=== PATIENT | female | born 1935 | race Hispanic/Latino ===

== ENCOUNTER 2018-11-01 13:20 | Emergency (ER) | payer MEDICARE, OTHER ==
--- NOTE | 2018-11-01 13:54 | Event Note ---
ED Screening Note Date of service: 11/01/18 Time: 13:50 ED Screening Note: 83 y o female presents to Ed cc of burning to pelvic area with nausea and constipation recent back fracture: on oxy,tramadol, gabapentin among other meds This initial assessment/diagnostic orders/clinical plan/treatment(s) is/are subject to change based on patients health status, clinical progression and re- assessment by fellow clinical providers in the ED. Further treatment and workup at subsequent clinical providers discretion. Patient/guardian urged not to elope from the ED as their condition may be serious if not clinically assessed and managed. Initial orders include: ua, CT abdomen
[2018-11-01 15:50] LABS: Bacteria,Urine 1+ /HPF (Negative); Bilirubin,Urine NEG (Negative); Blood,Urine NEG (Negative); Color,Urine Amber (Yellow); Mucus,Urine 3+ /HPF; Protein,Urine <15 mg/dL mg/dL (Negative)
--- NOTE | 2018-11-01 17:03 | Cat Scan Report ---
CT ABDOMEN AND PELVIS WITHOUT CONTRAST INDICATION: Abdominal Pain. COMPARISON: No relevant prior imaging study available. TECHNIQUE: Axial, coronal and sagittal CT imaging of the abdomen and pelvis was performed without co ntrast. Lack of intravenous contrast limits evaluation of the vascular and solid organs. All CT sca ns at this location are performed using CT dose reduction for ALARA by means of automated exposure co ntrol. FINDINGS: Motion artifact limits this exam. LOWER CHEST: Bibasilar atelectasis is noted with mild to moderate cardiomegaly. No additional signifi cant abnormality. Pacing leads are partially visualized. LIVER: No significant abnormality. BILIARY: No significant abnormality. PANCREAS: No significant abnormality. SPLEEN: No significant abnormality. ADRENALS: No significant abnormality. KIDNEYS AND URETERS: No significant abnormality. GI TRACT: There is extensive diverticulosis of the sigmoid colon with additional diverticula seen els ewhere along the colon without evidence of diverticulitis. No significant abnormality of the stomach or small bowel is seen. The appendix is not seen. PERITONEUM: No free fluid. No free air. No fluid collection. LYMPH NODES: No significant adenopathy. VASCULATURE: The aorta is normal in caliber with mild generalized atherosclerosis. URINARY BLADDER: No significant abnormality. REPRODUCTIVE ORGANS: Prior hysterectomy. No significant abnormality. ADDITIONAL FINDINGS: None. SKELETAL SYSTEM: There is osteopenia/osteoporosis with degenerative changes throughout the spine. IMPRESSION: 1. No acute abnormality of the abdomen or pelvis. 2. Additional findings as above. Signer Name: Alvino Castillo MD Signed: 11/01/2018 4:59 PM Workstation Name: [id number]
[2018-11-01] MEDS ORDERED: ZOFRAN IV ONE (19:06)
[2018-11-01] MEDS ORDERED: PROTONIX IV ONE (19:06)
--- NOTE | 2018-11-01 19:14 | Emergency Department Report ---
ED General Adult HPI - General Chief complaint: Abdominal Pain Stated complaint: STOMACH PAIN Time Seen by Provider: 11/01/18 13:50 Source: patient Mode of arrival: Ambulatory Limitations: No Limitations - History of Present Illness Initial comments: The patient presents to the emergency department with a chief complaint of lower abdominal pain/burning has been present for the last couple days. Patient also complains of not having a bowel movement for the last week and also feels like she cannot burp. She denies chest pain, shortness of breath, or headache. Patient does have a history of a hysterectomy 60 years ago -: Gradual Location: abdomen Severity scale (0 -10): 4 Improves with: none Worsens with: none Associated Symptoms: denies other symptoms Treatments Prior to Arrival: none - Related Data Home Medications Medication Instructions Recorded Confirmed Last Taken Aspirin [Aspirin BABY CHEW TAB] 1 tab PO DAILY 02/09/13 11/01/18 01/29/13 Furosemide 1 tab PO PRN 02/09/13 11/01/18 02/09/13 Levothyroxine [Synthroid] 1 tab PO DAILY 02/09/13 11/01/18 02/12/13 Pravastatin Sodium [Pravastatin] 20 mg PO DAILY 02/09/13 11/01/18 02/12/13 Carvedilol [Coreg] 12.5 mg PO BID 11/01/18 11/01/18 Unknown Levothyroxine [Synthroid] 100 mcg PO QAM 11/01/18 11/01/18 Unknown Losartan [Cozaar] 25 mg PO QDAY 11/01/18 11/01/18 Unknown Potassium Chloride [K-Dur] 10 meq PO QDAY 11/01/18 11/01/18 Unknown traMADol [Ultram] 50 mg PO Q6HR PRN 11/01/18 11/01/18 Unknown Previous Rx's Medication Instructions Recorded Last Taken Type Famotidine [Pepcid] 20 mg PO DAILY #30 tablet 11/01/18 Unknown Rx Sulfamethoxazole/Trimethoprim 1 each PO BID #10 tablet 11/01/18 Unknown Rx [Bactrim DS TAB] Allergies Allergy/AdvReac Type Severity Reaction Status Date / Time No Known Allergies Allergy Unverified 02/09/13 11:40 ED Review of Systems ROS: Stated complaint: STOMACH PAIN Other details as noted in HPI Comment: All other systems reviewed and negative Constitutional: denies: chills, fever Eyes: denies: eye pain, eye discharge, vision change ENT: denies: ear pain, throat pain Respiratory: denies: cough, shortness of breath, wheezing Cardiovascular: denies: chest pain, palpitations Endocrine: no symptoms reported Gastrointestinal: abdominal pain. denies: nausea, diarrhea Genitourinary: denies: urgency, dysuria, discharge Musculoskeletal: denies: back pain, joint swelling, arthralgia Skin: denies: rash, lesions Neurological: denies: headache, weakness, paresthesias Psychiatric: denies: anxiety, depression Hematological/Lymphatic: denies: easy bleeding, easy bruising ED Past Medical Hx - Past Medical History Previous Medical History?: Yes Hx Hypertension: Yes (20 YRS has high cholesterol.) Hx Heart Attack/AMI: No Hx Liver Disease: No Hx Renal Disease: No Hx Sickle Cell Disease: No Hx Seizures: No Hx Asthma: No Hx COPD: No - Surgical History Past Surgical History?: No Hx Pacemaker: No Hx Internal Defibrillator: No Additional Surgical History: Hysterectomy. Thyroidectomy - Social History Smoking Status: Never Smoker Substance Use Type: None - Medications Home Medications: Home Medications Medication Instructions Recorded Confirmed Last Taken Type Aspirin [Aspirin BABY CHEW TAB] 1 tab PO DAILY 02/09/13 11/01/18 01/29/13 History Furosemide 1 tab PO PRN 02/09/13 11/01/18 02/09/13 History Levothyroxine [Synthroid] 1 tab PO DAILY 02/09/13 11/01/18 02/12/13 History Pravastatin Sodium [Pravastatin] 20 mg PO DAILY 02/09/13 11/01/18 02/12/13 History Carvedilol [Coreg] 12.5 mg PO BID 11/01/18 11/01/18 Unknown History Famotidine [Pepcid] 20 mg PO DAILY #30 tablet 11/01/18 Unknown Rx Levothyroxine [Synthroid] 100 mcg PO QAM 11/01/18 11/01/18 Unknown History Losartan [Cozaar] 25 mg PO QDAY 11/01/18 11/01/18 Unknown History Potassium Chloride [K-Dur] 10 meq PO QDAY 11/01/18 11/01/18 Unknown History Sulfamethoxazole/Trimethoprim 1 each PO BID #10 tablet 11/01/18 Unknown Rx [Bactrim DS TAB] traMADol [Ultram] 50 mg PO Q6HR PRN 11/01/18 11/01/18 Unknown History ED Physical Exam - General Limitations: No Limitations General appearance: alert, in no apparent distress - Head Head exam: Present: atraumatic, normocephalic - Eye Eye exam: Present: normal appearance, PERRL, EOMI - ENT ENT exam: Present: mucous membranes moist - Neck Neck exam: Present: normal inspection - Respiratory Respiratory exam: Present: normal lung sounds bilaterally. Absent: respiratory distress - Cardiovascular Cardiovascular Exam: Present: regular rate, normal rhythm. Absent: systolic murmur, diastolic murmur, rubs, gallop - GI/Abdominal GI/Abdominal exam: Present: soft, normal bowel sounds. Absent: distended, tenderness - Extremities Exam Extremities exam: Present: normal inspection - Back Exam Back exam: Present: normal inspection - Neurological Exam Neurological exam: Present: alert, oriented X3, CN II-XII intact. Absent: motor sensory deficit - Psychiatric Psychiatric exam: Present: normal affect, normal mood - Skin Skin exam: Present: warm, dry, intact, normal color. Absent: rash ED Course Vital Signs 11/01/18 11/01/18 11/01/18 13:53 19:25 19:30 Temperature 98.6 F 97.6 F Pulse Rate 72 75 70 Respiratory 16 16 17 Rate Blood Pressure 145/98 165/80 Blood Pressure 171/83 [Left] O2 Sat by Pulse 92 95 96 Oximetry 11/01/18 20:00 Temperature Pulse Rate 74 Respiratory 17 Rate Blood Pressure 146/85 Blood Pressure [Left] O2 Sat by Pulse 96 Oximetry ED Medical Decision Making - Lab Data Result diagrams: 11/01/18 19:57 11/01/18 19:57 Lab Results 11/01/18 11/01/18 11/01/18 Range/Units 15:10 19:57 19:57 WBC 6.4 (4.5-11.0) K/mm3 RBC 4.79 (3.65-5.03) M/mm3 Hgb 12.0 (10.1-14.3) gm/dl Hct 37.7 (30.3-42.9) % MCV 79 (79-97) fl MCH 25 L (28-32) pg MCHC 32 (30-34) % RDW 17.8 H (13.2-15.2) % Plt Count 169 (140-440) K/mm3 Lymph % (Auto) 45.2 H (13.4-35.0) % [place] % (Auto) 6.1 (0.0-7.3) % Eos % (Auto) 0.1 (0.0-4.3) % Baso % (Auto) 0.8 (0.0-1.8) % Lymph # 2.9 (1.2-5.4) K/mm3 [place] # 0.4 (0.0-0.8) K/mm3 Eos # 0.0 (0.0-0.4) K/mm3 Baso # 0.0 (0.0-0.1) K/mm3 Seg Neutrophils % 47.8 (40.0-70.0) % Seg Neutrophils # 3.0 (1.8-7.7) K/mm3 PT 14.3 (12.2-14.9) Sec. INR 1.14 H (0.87-1.13) APTT 28.5 (24.2-36.6) Sec. Sodium (137-145) mmol/L Potassium (3.6-5.0) mmol/L Chloride (98-107) mmol/L Carbon Dioxide (22-30) mmol/L Anion Gap mmol/L BUN (7-17) mg/dL Creatinine (0.7-1.2) mg/dL Estimated GFR ml/min BUN/Creatinine Ratio % Glucose (65-100) mg/dL Calcium (8.4-10.2) mg/dL Total Bilirubin (0.1-1.2) mg/dL AST (5-40) units/L ALT (7-56) units/L Alkaline Phosphatase (35-129) units/L Troponin T (0.00-0.029) ng/mL Total Protein (6.3-8.2) g/dL Albumin (3.9-5) g/dL Albumin/Globulin Ratio % Lipase (13-60) units/L Urine Color [place] (Yellow) Urine Turbidity Cloudy (Clear) Urine pH 5.0 (5.0-7.0) Ur Specific [place] 1.019 (1.003-1.030) Urine Protein <15 mg/dl (Negative) mg/dL Urine Glucose (UA) Neg (Negative) mg/dL Urine Ketones Neg (Negative) mg/dL Urine Blood Neg (Negative) Urine Nitrite Pos (Negative) Urine Bilirubin Neg (Negative) Urine Urobilinogen 2.0 (<2.0) mg/dL Ur Leukocyte Esterase Neg (Negative) Urine WBC (Auto) 2.0 (0.0-6.0) /HPF Urine RBC (Auto) 4.0 (0.0-6.0) /HPF U Epithel Cells (Auto) 10.0 (0-13.0) /HPF Urine Bacteria (Auto) 1+ (Negative) /HPF Urine Mucus 3+ /HPF 11/01/18 Range/Units 19:57 WBC (4.5-11.0) K/mm3 RBC (3.65-5.03) M/mm3 Hgb (10.1-14.3) gm/dl Hct (30.3-42.9) % MCV (79-97) fl MCH (28-32) pg MCHC (30-34) % RDW (13.2-15.2) % Plt Count (140-440) K/mm3 Lymph % (Auto) (13.4-35.0) % [place] % (Auto) (0.0-7.3) % Eos % (Auto) (0.0-4.3) % Baso % (Auto) (0.0-1.8) % Lymph # (1.2-5.4) K/mm3 [place] # (0.0-0.8) K/mm3 Eos # (0.0-0.4) K/mm3 Baso # (0.0-0.1) K/mm3 Seg Neutrophils % (40.0-70.0) % Seg Neutrophils # (1.8-7.7) K/mm3 PT (12.2-14.9) Sec. INR (0.87-1.13) APTT (24.2-36.6) Sec. Sodium 143 (137-145) mmol/L Potassium 3.5 L (3.6-5.0) mmol/L Chloride 103.4 (98-107) mmol/L Carbon Dioxide 25 (22-30) mmol/L Anion Gap 18 mmol/L BUN 16 (7-17) mg/dL Creatinine 0.6 L (0.7-1.2) mg/dL Estimated GFR > 60 ml/min BUN/Creatinine Ratio 27 % Glucose 86 (65-100) mg/dL Calcium 9.9 (8.4-10.2) mg/dL Total Bilirubin 0.60 (0.1-1.2) mg/dL AST 15 (5-40) units/L ALT 9 (7-56) units/L Alkaline Phosphatase 74 (35-129) units/L Troponin T < 0.010 (0.00-0.029) ng/mL Total Protein 7.0 (6.3-8.2) g/dL Albumin 4.3 (3.9-5) g/dL Albumin/Globulin Ratio 1.6 % Lipase 22 (13-60) units/L Urine Color (Yellow) Urine Turbidity (Clear) Urine pH (5.0-7.0) Ur Specific [place] (1.003-1.030) Urine Protein (Negative) mg/dL Urine Glucose (UA) (Negative) mg/dL Urine Ketones (Negative) mg/dL Urine Blood (Negative) Urine Nitrite (Negative) Urine Bilirubin (Negative) Urine Urobilinogen (<2.0) mg/dL Ur Leukocyte Esterase (Negative) Urine WBC (Auto) (0.0-6.0) /HPF Urine RBC (Auto) (0.0-6.0) /HPF U Epithel Cells (Auto) (0-13.0) /HPF Urine Bacteria (Auto) (Negative) /HPF Urine Mucus /HPF - Radiology Data Radiology results: report reviewed - Medical Decision Making Discussed results with patient Critical care attestation.: If time is entered above; I have spent that time in minutes in the direct care of this critically ill patient, excluding procedure time. ED Disposition Clinical Impression: Abdominal pain, UTI (urinary tract infection) Disposition: TO HOME OR SELFCARE Is pt being admited?: No Does the pt Need Aspirin: No Condition: Stable Instructions: Abdominal Pain (ED), Urinary Tract Infection in Women (ED) Additional Instructions: Return if worse Prescriptions: Sulfamethoxazole/Trimethoprim [Bactrim DS TAB] 1 each PO BID #10 tablet Famotidine [Pepcid] 20 mg PO DAILY #30 tablet Referrals: EDMAR CASILLAS MD [Primary Care Provider] - 3-5 Days JACQUES FRANCISCO MD [Staff Physician] - 3-5 Days Time of Disposition: 21:32
[2018-11-01 20:35] LABS: Basophils % (Auto) 0.8 % (0.0-1.8); Eosinophils % (Auto) 0.1 % (0.0-4.3); Hematocrit 37.7 % (30.3-42.9); Lymphocytes # (Auto) 2.9 K/mm3 (1.2-5.4); Lymphocytes % (Auto) 45.2 % (13.4-35.0); Mean Corpuscular HGB Conc 32 % (30-34); Mean Corpuscular Volume 79 fl (79-97); Monocytes # (Auto) 0.4 K/mm3 (0.0-0.8); Monocytes % (Auto) 6.1 % (0.0-7.3); Platelet Count 169 K/mm3 (140-440); Red Blood Count 4.79 M/mm3 (3.65-5.03); Red Cell Distribution Width 17.8 % (13.2-15.2)
[2018-11-01 20:46] LABS: INR 1.14 (0.87-1.13)
[2018-11-01 20:48] LABS: Partial Thromboplastin Time 28.5 Sec. (24.2-36.6)
[2018-11-01 21:03] LABS: Alanine Aminotransferase 9 units/L (7-56); Albumin 4.3 g/dL (3.9-5); BUN/Creatinine Ratio 27; Blood Urea Nitrogen 16 mg/dL (7-17); Calcium 9.9 mg/dL (8.4-10.2); Hemolysis Index 11
--- NOTE | 2018-11-01 22:12 | Cat Scan Report ---
CT abdomen pelvis w con INDICATION / CLINICAL INFORMATION: Abdominal pain. TECHNIQUE: The patient received 100 cc Omnipaque [address] scans at this location are performed using CT dose reduction for ALARA by means of automated exposure control. COMPARISON: Earlier today at 4:06 PM. FINDINGS: ABDOMEN: There is a 3.3 cm low-density lesion in the superior aspect of the liver which contains a co uple of tiny calcifications. This lesion was similar in density to blood pool on the noncontrast exam earlier today. The appearance is characteristic of an atypical cavernous hemangioma. There is a subc entimeter cyst in the right lobe of the liver. The gallbladder, bile ducts, pancreas, spleen, adrenal glands, kidneys and bowel are normal. No adeno antonio is seen. The lung bases are clear. The heart is enlarged. PELVIS: The distal ureters and urinary bladder are normal. The uterus and ovaries are not identified. There is no evidence of adnexal mass or free fluid. A normal appendix is present. There is extensive sigmoid diverticulosis without evidence of diverticulitis. I do not identify a hernia. There is adva nced spondylosis. A moderate compression fracture of the L3 vertebral body is old. Milder compression fractures involving several other vertebral bodies are also likely chronic. IMPRESSION: 1. No acute intra-abdominal disease is identified. 2. Diverticulosis without CT evidence of diverticulitis. 3. Probable 3.3 cm cavernous hemangioma in the dome of the liver. Signer Name: Catrachito Schofield MD Signed: 11/01/2018 10:07 PM Workstation Name: [id number]
[2018-11-01 22:16] VITALS: BP 153/78
== END 2018-11-01 21:55 | disposition home or self-care (01) ==
LOC: ED 13:20
DX: N39.0 Urinary tract infection, site not specified (principal); I10 Essential (primary) hypertension; Z90.710 Acquired absence of both cervix and uterus; Z79.82 Long term (current) use of aspirin; Z79.899 Other long term (current) drug therapy
CPT/HCPCS: 36415; 74176; 74177; 80053; 81001; 83690; 84484; 85025; 85610; 85730; 96374; 99284; C9113; J2405; Q9967

== ENCOUNTER 2021-09-19 21:59 | Inpatient (IN) | payer MEDICARE, OTHER ==
[2021-09-20] MEDS ORDERED: methylPREDNISolone Sod Succinate 125 MG/2 ML INJ IV ONE (00:48)
[2021-09-20] MEDS ORDERED: IPRATROPIUM 0.02% NEBU 2.5 ML IH ONE (00:48)
[2021-09-20] MEDS ORDERED: ALBUTEROL 2.5 MG/3 ML NEBU IH ONE (00:48)
--- NOTE | 2021-09-20 00:54 | Emergency Department Report ---
<LEMUEL MILES - Last Filed: 09/20/21 06:31> ED Shortness of Breath HPI - General Chief Complaint: Dyspnea/Respdistress Stated Complaint: SOB Time Seen by Provider: 09/20/21 00:00 Source: patient Mode of arrival: Ambulatory Limitations: No Limitations - History of Present Illness Initial Comments: 86 yo F with h/o CHF who present with 3 days of dry cough associated with dyspnea progressively getting worse. Pt denies any chest pain or palpitation. She reports been followed by acquisition marketing coordinator. No fever or chills reported and no other modifying or associated factors reported. MD Complaint: shortness of breath - Related Data Home Medications Medication Instructions Recorded Confirmed Last Taken Aspirin [Aspirin BABY CHEW TAB] 1 tab PO DAILY 02/09/13 11/01/18 01/29/13 Furosemide 1 tab PO PRN 02/09/13 11/01/18 02/09/13 Levothyroxine [Synthroid] 1 tab PO DAILY 02/09/13 11/01/18 02/12/13 Pravastatin Sodium [Pravastatin] 20 mg PO DAILY 02/09/13 11/01/18 02/12/13 Levothyroxine [Synthroid] 100 mcg PO QAM 11/01/18 11/01/18 Unknown Losartan [Cozaar] 25 mg PO QDAY 11/01/18 11/01/18 Unknown Potassium Chloride [K-Dur] 10 meq PO QDAY 11/01/18 11/01/18 Unknown carvediloL [Coreg] 12.5 mg PO BID 11/01/18 11/01/18 Unknown traMADoL [Ultram] 50 mg PO Q6HR PRN 11/01/18 11/01/18 Unknown Previous Rx's Medication Instructions Recorded Last Taken Type Famotidine [Pepcid] 20 mg PO DAILY #30 tablet 11/01/18 Unknown Rx Sulfamethoxazole/Trimethoprim 1 each PO BID #10 tablet 11/01/18 Unknown Rx [Bactrim DS TAB] Allergies Allergy/AdvReac Type Severity Reaction Status Date / Time No Known Allergies Allergy Unverified 02/09/13 11:40 ED Review of Systems Comment: All other systems reviewed and negative Respiratory: cough, shortness of breath, wheezing ED Past Medical Hx - Past Medical History Previous Medical History?: Yes Hx Hypertension: Yes (20 YRS has high cholesterol.) Hx Heart Attack/AMI: Yes Hx Congestive Heart Failure: Yes Hx Liver Disease: No Hx Renal Disease: No Hx Sickle Cell Disease: No Hx Seizures: No Hx Asthma: No Hx COPD: No Additional medical history: High Cholesterol. Anemia - Surgical History Past Surgical History?: Yes Hx Pacemaker: No Hx Internal Defibrillator: No Additional Surgical History: Hysterectomy. Thyroidectomy. Hernia repair. Bilateral Knee Replacement - Social History Smoking Status: Never Smoker Substance Use Type: None - Medications Home Medications: Home Medications Medication Instructions Recorded Confirmed Last Taken Type Aspirin [Aspirin BABY CHEW TAB] 1 tab PO DAILY 02/09/13 11/01/18 01/29/13 His tory Furosemide 1 tab PO PRN 02/09/13 11/01/18 02/09/13 History Levothyroxine [Synthroid] 1 tab PO DAILY 02/09/13 11/01/18 02/12/13 History Pravastatin Sodium [Pravastatin] 20 mg PO DAILY 02/09/13 11/01/18 02/12/13 History Famotidine [Pepcid] 20 mg PO DAILY #30 tablet 11/01/18 Unknown Rx Levothyroxine [Synthroid] 100 mcg PO QAM 11/01/18 11/01/18 Unknown History Losartan [Cozaar] 25 mg PO QDAY 11/01/18 11/01/18 Unknown History Potassium Chloride [K-Dur] 10 meq PO QDAY 11/01/18 11/01/18 Unknown History Sulfamethoxazole/Trimethoprim 1 each PO BID #10 tablet 11/01/18 Unknown Rx [Bactrim DS TAB] carvediloL [Coreg] 12.5 mg PO BID 11/01/18 11/01/18 Unknown History traMADoL [Ultram] 50 mg PO Q6HR PRN 11/01/18 11/01/18 Unknown History ED Physical Exam - General Limitations: No Limitations General appearance: alert, in no apparent distress - Head Head exam: Present: normal inspection - Eye Eye exam: Present: normal appearance Pupils: Present: normal accommodation - ENT ENT exam: Present: normal exam, normal orophraynx, mucous membranes moist - Neck Neck exam: Present: normal inspection. Absent: tenderness - Respiratory Respiratory exam: Present: normal lung sounds bilaterally, wheezes. Absent: respiratory distress, accessory muscle use - Cardiovascular Cardiovascular Exam: Present: regular rate, normal rhythm, normal heart sounds - GI/Abdominal GI/Abdominal exam: Present: soft, normal bowel sounds. Absent: distended, tenderness - Extremities Exam Extremities exam: Present: normal inspection, normal capillary refill. Absent: pedal edema - Back Exam Back exam: Absent: tenderness - Neurological Exam Neurological exam: Present: alert, oriented X3 - Psychiatric Psychiatric exam: Present: normal affect, normal mood - Skin Skin exam: Present: warm, intact ED Course - Reevaluation(s) Reevaluation #1: 09/20/21 06:[address] Orourke while waiting for response to treatment and CXR result ED Medical Decision Making - Lab Data Result diagrams: 09/20/21 00:55 09/20/21 00:55 - Medical Decision Making Here with shortness of breath--among differential diagnosis could be but not limited to acute exacerbation of COPD, myocardiac infarction, pulmonary embolism, acute exacerbation of asthma, pneumothorax, pneumonia or Viral or Bacterial Upper/Lower respiratory tract infection or other systemic infec tion.--To rule out the above will go ahead and order EKG, cardiac enzyme including troponin, BNP, CKMB, chest x-ray, CBC, CMP, UA and or D-dimer. In the meantime we will go ahead and treat with DuoNeb, 125 mg of Solu-Medrol, and will make a case for antibiotics Levaquin considering likely cause to be acute COPD exacerbation and continue to monitor the patient. ED Disposition Clinical Impression: CHF exacerbation Disposition: 01 HOME / SELF CARE / HOMELESS Does the pt Need Aspirin: No Condition: Stable Time of Disposition: 06:32 <TONE OROURKE - Last Filed: 09/20/21 08:50> ED Review of Systems ROS: Stated complaint: SOB Other details as noted in HPI ED Course Vital Signs 09/19/21 09/20/21 09/20/21 22:00 02:00 04:43 Temperature 98 F Pulse Rate 116 H 76 Pulse Rate [ 81 Bilateral Throughout] Respiratory 18 Rate Respiratory 20 Rate [Bilateral Throughout] Blood Pressure 158/78 Blood Pressure [Left] O2 Sat by Pulse 100 Oximetry 09/20/21 09/20/21 04:46 07:50 Temperature Pulse Rate 76 77 Pulse Rate [ Bilateral Throughout] Respiratory 18 16 Rate Respiratory Rate [Bilateral Throughout] Blood Pressure Blood Pressure 120/62 133/80 [Left] O2 Sat by Pulse 91 Oximetry ED Medical Decision Making - Lab Data Result diagrams: 09/20/21 00:55 09/20/21 00:55 Critical care attestation.: If time is entered above; I have spent that time in minutes in the direct care of this critically ill patient, excluding procedure time. ED Disposition Is pt being admited?: Yes
[2021-09-20 01:32] LABS: Alanine Aminotransferase 18 units/L (7-56); Albumin 4.1 g/dL (3.9-5); BUN/Creatinine Ratio 23; Blood Urea Nitrogen 16 mg/dL (7-17); Calcium 9.2 mg/dL (8.4-10.2); Hemolysis Index 8
[2021-09-20 01:33] LABS: Basophils % (Auto) 0.4 % (0.0-1.8); Eosinophils % (Auto) 0.1 % (0.0-4.3); Hematocrit 39.5 % (30.3-42.9); Hemoglobin 13.8 gm/dl (10.1-14.3); Lymphocytes % (Auto) 29.7 % (13.4-35.0); Mean Corpuscular HGB Conc 35 % (30-34); Mean Corpuscular Volume 95 fl (79-97); Monocytes # (Auto) 0.3 K/mm3 (0.0-0.8); Platelet Count 137 K/mm3 (140-440); Red Blood Count 4.18 M/mm3 (3.65-5.03); Red Cell Distribution Width 14.5 % (13.2-15.2)
[2021-09-20 01:45] LABS: INR 1.01 (0.87-1.13)
[2021-09-20 01:46] LABS: Partial Thromboplastin Time 31.9 Sec. (24.2-36.6)
[2021-09-20] MEDS ORDERED: FUROSEMIDE 40 MG/4 ML INJ IV ONE (05:40)
--- NOTE | 2021-09-20 06:24 | XRay Report ---
CHEST 1 VIEW INDICATION / CLINICAL INFORMATION: sob. COMPARISON: None available. FINDINGS: SUPPORT DEVICES: AICD appears adequately positioned. HEART / MEDIASTINUM: Heart size upper limits of normal. LUNGS / PLEURA: Mild prominence of central vasculature and bilateral interstitial prominence are demo nstrated. No focal consolidation. Small hiatal hernia. BONES: No significant osseous abnormality. ADDITIONAL FINDINGS: No significant additional findings. IMPRESSION: 1. Mild decompensation of CHF suggestive of vascular congestion and interstitial pulmonary edema. Signer Name: Connor Sood II, MD Signed: 09/20/2021 6:20 AM Workstation Name: [id number]
[2021-09-20] MEDS ORDERED: ACETAMINOPHEN 325 MG TAB PO PRN ×2 (11:41→16:41)
--- NOTE | 2021-09-20 11:53 | History and Physical Report ---
History of Present Illness Date of examination: 09/20/21 Date of admission: 09/20/2021 Chief complaint: Shortness of breath History of present illness: 86-year-old female with past medical history significant for systolic CHF with ejection fraction of 35%, status post AICD placement presented to the emergency department for the complaints of shortness of breath for the last 2 days, shortness of breath is getting worse and with exertion. Patient was feel ing bad for the last few days. Patient has dry cough which was chronic nothing was changed. Patient had mild bilateral ankle edema. Patient denied any chest pain. Patient denied any fever, chills or contact with COVID-patient. Patient was seen by her operations administrative assistant Dr. Longo recently and he changed her Lasix from 40 mg to 20 mg because during evaluation patient was doing well and after that p atient started to have shortness of breath. REVIEW OF SYSTEMS: GENERAL: no weight change, no fatigue, no fever HEAD: no head ache EYES: no blurry vision, no acute visual loss EARS: no hearing loss, no discharge, no earache NOSE: no stuffiness, no sneezing, no discharge MOUTH, THROAT AND NECK: no bleeding gums, no sore throat, no swollen neck CARDIAC: As stated in HPI RESPIRATORY: no shortness of breath, no wheeze, no cough, no sputum, no hemoptysis, no asthma GI: no decreased appetite, no nausea, no vomiting, no dysphagia, no diarrhea, no constipation, no abdominal pain URINARY: No urgency, hematuria, dysuria or frequency. MUSCULOSKELETAL: no muscle weakness, no pain, no joint stiffness NEUROLOGIC: no loss of sensation/numbness, no tingling, no tremors, no weakness/paralysis HEMATOLOGIC: no anemia, no easy bruising SKIN: no rashes ENDOCRINE: no heat/cold intolerance, no polyuria, no polydipsia, no thyroid problems, no diabetes PSYCHIATRIC: no anxiety, no depression, no suicidal ideations Past History Past Medical History: heart failure, hypertension, hyperlipidemia, hypothyroidism Past Surgical History: cataract removal, hysterectomy, hernia repair, total knee replacement Social history: full code. denies: smoking, alcohol abuse, prescription drug abuse, IV drug use Family history: other (Coronary artery disease run in the family.) Medications and Allergies Allergies Allergy/AdvReac Type Severity Reaction Status Date / Time No Known Allergies Allergy Unverified 02/09/13 11:40 Home Medications Medication Instructions Recorded Confirmed Last Taken Type Aspirin [Aspirin BABY CHEW TAB] 1 tab PO DAILY 02/09/13 11/01/18 01/29/13 History Furosemide 1 tab PO PRN 02/09/13 11/01/18 02/09/13 History Levothyroxine [Synthroid] 1 tab PO DAILY 02/09/13 11/01/18 02/12/13 History Pravastatin Sodium [Pravastatin] 20 mg PO DAILY 02/09/13 11/01/18 02/12/13 History Famotidine [Pepcid] 20 mg PO DAILY #30 tablet 11/01/18 Unknown Rx Levothyroxine [Synthroid] 100 mcg PO QAM 11/01/18 11/01/18 Unknown History Losartan [Cozaar] 25 mg PO QDAY 11/01/18 11/01/18 Unknown History Potassium Chloride [K-Dur] 10 meq PO QDAY 11/01/18 11/01/18 Unknown History Sulfamethoxazole/Trimethoprim 1 each PO BID #10 tablet 11/01/18 Unknown Rx [Bactrim DS TAB] carvediloL [Coreg] 12.5 mg PO BID 11/01/18 11/01/18 Unknown History traMADoL [Ultram] 50 mg PO Q6HR PRN 11/01/18 11/01/18 Unknown History Active Meds: Active Medications Acetaminophen (Acetaminophen 325 Mg Tab) 650 mg PO Q4H PRN PRN Reason: Pain MILD(1-3)/Fever >100.5/OSBORN Aspirin (Aspirin 81 Mg Tab Chew) mg PO DAILY JEANNINE Carvedilol (Carvedilol 12.5 Mg Tab) 12.5 mg PO BID JEANNINE Docusate Sodium (Docusate Sodium 100 Mg Cap) 100 mg PO BID JEANNINE Famotidine (Famotidine 20 Mg Tab) 20 mg PO DAILY JEANNINE Furosemide (Furosemide 40 Mg/4 Ml Inj) 40 mg IV BID JEANNINE Levothyroxine Sodium (Levothyroxine 100 Mcg Tab) mcg PO DAILY JEANNINE Losartan Potassium (Losartan 25 Mg Tab) 25 mg PO QDAY JEANNINE Ondansetron HCl (Ondansetron 4 Mg/2 Ml Inj) 4 mg IV Q8H PRN PRN Reason: Nausea And Vomiting Sodium Chloride (Sodium Chloride 0.9% 10 Ml Flush Syringe) 10 ml IV PRN PRN PRN Reason: LINE FLUSH Tramadol HCl (Tramadol 50 Mg Tab) 50 mg PO Q6HR PRN PRN Reason: PAIN Exam - Physical Exam Narrative exam: Patient was on Ventimask and getting 10 L of oxygen. The patient appeared well nourished and normally developed. Vital signs as documented. Head exam is unremarkable. No scleral icterus . Neck is without jugular venous distension, thyromegaly, or carotid bruits. Lungs decreased air entry on the bibasilar area Cardiac exam reveals regular rate and Rhythm. Abdominal exam reveals normal bowel sounds, nontender, no organomegaly. Extremities are nonedematous and both femoral and pedal pulses are normal. DIRECTOR OF MARKETING OPERATIONS: Alert and oriented 3. No focal weakness. - Constitutional Vitals: Temp Pulse Resp BP Pulse Ox 98 F 71 16 120/60 94 09/19/21 22:00 09/20/21 09:15 09/20/21 09:15 09/20/21 09:15 09/20/21 09:15 HEART Score - HEART Score Troponin: Troponin T < 0.010 ng/mL (0.00-0.029) 09/20/21 00:55 Results - Labs CBC & Chem 7: 09/20/21 00:55 09/20/21 00:55 Labs: Laboratory Last Values WBC 6.8 K/mm3 (4.5-11.0) 09/20/21 00:55 RBC 4.18 M/mm3 (3.65-5.03) 09/20/21 00:55 Hgb 13.8 gm/dl (10.1-14.3) 09/20/21 00:55 Hct 39.5 % (30.3-42.9) 09/20/21 00:55 MCV 95 fl (79-97) 09/20/21 00:55 MCH 33 pg (28-32) H 09/20/21 00:55 MCHC 35 % (30-34) H 09/20/21 00:55 RDW 14.5 % (13.2-15.2) 09/20/21 00:55 Plt Count 137 K/mm3 (140-440) L 09/20/21 00:55 Lymph % (Auto) 29.7 % (13.4-35.0) 09/20/21 00:55 [place] % (Auto) 5.0 % (0.0-7.3) 09/20/21 00:55 Eos % (Auto) 0.1 % (0.0-4.3) 09/20/21 00:55 Baso % (Auto) 0.4 % (0.0-1.8) 09/20/21 00:55 Lymph # (Auto) 2.0 K/mm3 (1.2-5.4) 09/20/21 00:55 [place] # (Auto) 0.3 K/mm3 (0.0-0.8) 09/20/21 00:55 Eos # (Auto) 0.0 K/mm3 (0.0-0.4) 09/20/21 00:55 Baso # (Auto) 0.0 K/mm3 (0.0-0.1) 09/20/21 00:55 Seg Neutrophils % 64.8 % (40.0-70.0) 09/20/21 00:55 Seg Neutrophils # 4.4 K/mm3 (1.8-7.7) 09/20/21 00:55 PT 14.4 Sec. (12.2-14.9) 09/20/21 00:55 INR 1.01 (0.87-1.13) 09/20/21 00:55 APTT 31.9 Sec. (24.2-36.6) 09/20/21 00:55 Sodium 144 mmol/L (137-145) 09/20/21 00:55 Potassium 3.8 mmol/L (3.6-5.0) 09/20/21 00:55 Chloride 104.0 mmol/L (98-107) 09/20/21 00:55 Carbon Dioxide 27 mmol/L (22-30) 09/20/21 00:55 Anion Gap 17 mmol/L 09/20/21 00:55 BUN 16 mg/dL (7-17) 09/20/21 00:55 Creatinine 0.7 mg/dL (0.6-1.2) 09/20/21 00:55 Estimated GFR > 60 ml/min 09/20/21 00:55 BUN/Creatinine Ratio 23 % 09/20/21 00:55 Glucose 104 mg/dL (65-100) H 09/20/21 00:55 Calcium 9.2 mg/dL (8.4-10.2) 09/20/21 00:55 Total Bilirubin 0.60 mg/dL (0.1-1.2) 09/20/21 00:55 AST 19 units/L (5-40) 09/20/21 00:55 ALT 18 units/L (7-56) 09/20/21 00:55 Alkaline Phosphatase 48 units/L (35-129) 09/20/21 00:55 Troponin T < 0.010 ng/mL (0.00-0.029) 09/20/21 00:55 NT-Pro-B Natriuret Pep 46816 pg/mL (0-900) H 09/20/21 00:55 Total Protein 6.2 g/dL (6.3-8.2) L 09/20/21 00:55 Albumin 4.1 g/dL (3.9-5) 09/20/21 00:55 Albumin/Globulin Ratio 2.0 % 09/20/21 00:55 Assessment and Plan Assessment and plan: Acute respiratory failure -Patient was dyspneic at presentation -Placed on 10 L of oxygen via Ventimask Acute on chronic CHF exacerbation -Per patient she said she had EF of 35%, status post AICD -She has been following with Dr. Longo and she saw him last week -I put her on IV Lasix 40 mg twice daily, cardiac diet. Monitor input and ou tput -Resume home medications -She said she was on Entresto which was not listed as her home medication and discussed with the patient to bring the medications and she can resume her own medication DVT prophylaxis: Lovenox CODE STATUS; full code Disposition -Admit to telemetry floor for observation. Management plan was discussed with the patient and agreed with the plan of care. Advance Directives: Yes VTE prophylaxis?: Chemical Plan of care discussed with patient/family: Yes
[2021-09-20] MEDS: FAMOTIDINE 20 MG TAB PO SCH (14:13)
[2021-09-20] MEDS: LEVOTHYROXINE 100 MCG TAB PO SCH (15:19)
[2021-09-20] MEDS ORDERED: ONDANSETRON 4 MG/2 ML INJ IV PRN ×2 (16:41→16:44)
[2021-09-20] MEDS: traMADol 50 MG TAB PO PRN (16:48)
[2021-09-20] MEDS: FUROSEMIDE 40 MG/4 ML INJ IV SCH (21:50)
[2021-09-20] MEDS: carvediloL 12.5 MG TAB PO SCH (21:50)
[2021-09-20] MEDS: DOCUSATE SODIUM 100 MG CAP PO SCH (21:50)
[2021-09-20] MEDS: ONDANSETRON 4 MG/2 ML INJ IV PRN (22:05)
[2021-09-21] MEDS: traMADol 50 MG TAB PO PRN ×2 (03:35→14:18)
[2021-09-21 05:38] LABS: Blood Urea Nitrogen 15 mg/dL (7-17); Hemolysis Index 69
[2021-09-21 05:41] LABS: Bacteria,Urine 1+ /HPF (Negative); RBC,Urine < 1.0 /HPF (0.0-6.0); WBC,Urine < 1.0 /HPF (0.0-6.0)
[2021-09-21 05:45] LABS: BUN/Creatinine Ratio 30
[2021-09-21 05:53] LABS: Bilirubin,Urine Negative (Negative); Color,Urine Yellow (Yellow)
[2021-09-21 05:54] LABS: Blood,Urine Negative (Negative); Protein,Urine <15 mg/dL mg/dL (Negative)
[2021-09-21] MEDS: carvediloL 12.5 MG TAB PO SCH ×2 (09:00→22:08)
[2021-09-21] MEDS: LOSARTAN 25 MG TAB PO SCH (09:00)
[2021-09-21] MEDS: DOCUSATE SODIUM 100 MG CAP PO SCH ×2 (09:51→22:09)
[2021-09-21] MEDS: LEVOTHYROXINE 100 MCG TAB PO SCH (09:51)
[2021-09-21] MEDS: FUROSEMIDE 40 MG/4 ML INJ IV SCH ×2 (09:51→22:08)
[2021-09-21] MEDS: ASPIRIN 81 MG TAB CHEW PO SCH (09:51)
[2021-09-21] MEDS: FAMOTIDINE 20 MG TAB PO SCH (09:51)
--- NOTE | 2021-09-21 10:24 | Progress Note ---
Assessment and Plan Assessment and plan: Acute respiratory failure -Patient was dyspneic at presentation -Placed on 10 L of oxygen via Ventimask 09/21 -Patient was on 3 L of oxygen and saturating 95% -Wean off oxygen as tolerated Acute on chronic CHF exacerbation -Per patient she said she had EF of 35%, status post AICD -She has been following with Dr. Longo and she saw him last week -I put her on IV Lasix 40 mg twice daily, cardiac diet. Monitor input and output -Resume home medications -She said she was on Entresto which was not listed as her home medication and discussed with the patient to bring the medications and she can resume her own medication 09/21 -Patient is on IV Lasix, took Entresto. Blood pressure is on the low side of normal and I held carvedilol and losartan for now. DVT prophylaxis: Lovenox CODE STATUS; full code Disposition -Possible discharge tomorrow. Management plan was discussed with the patient and agreed with the plan of care. History Interval history: Patient was seen and evaluated this morning Patient states shortness of breath is getting better No swelling of lower extremities. Patient was on 3 L of oxygen Hospitalist Physical - Physical exam Narrative exam: Patient was on Ventimask and getting 10 L of oxygen. The patient appeared well nourished and normally developed. Vital signs as documented. Head exam is unremarkable. No scleral icterus . Neck is without jugular venous distension, thyromegaly, or carotid bruits. Lungs clear to auscultation bilaterally Cardiac exam reveals regular rate and Rhythm. Abdominal exam reveals normal bowel sounds, nontender, no organomegaly. Extremities are nonedematous and both femoral and pedal pulses are normal. 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 No focal weakness. - Constitutional Vitals: Temp Pulse Resp BP Pulse Ox 97.9 F 80 16 105/63 96 09/21/21 08:12 09/21/21 03:45 09/21/21 08:12 09/21/21 08:12 09/21/21 03:45 HEART Score - HEART Score Troponin: Troponin T < 0.010 ng/mL (0.00-0.029) 09/20/21 00:55 Results - Labs CBC & Chem 7: 09/20/21 00:55 09/21/21 04:25 Labs: Laboratory Last Values WBC 6.8 K/mm3 (4.5-11.0) 09/20/21 00:55 RBC 4.18 M/mm3 (3.65-5.03) 09/20/21 00:55 Hgb 13.8 gm/dl (10.1-14.3) 09/20/21 00:55 Hct 39.5 % (30.3-42.9) 09/20/21 00:55 MCV 95 fl (79-97) 09/20/21 00:55 MCH 33 pg (28-32) H 09/20/21 00:55 MCHC 35 % (30-34) H 09/20/21 00:55 RDW 14.5 % (13.2-15.2) 09/20/21 00:55 Plt Count 137 K/mm3 (140-440) L 09/20/21 00:55 Lymph % (Auto) 29.7 % (13.4-35.0) 09/20/21 00:55 [place] % (Auto) 5.0 % (0.0-7.3) 09/20/21 00:55 Eos % (Auto) 0.1 % (0.0-4.3) 09/20/21 00:55 Baso % (Auto) 0.4 % (0.0-1.8) 09/20/21 00:55 Lymph # (Auto) 2.0 K/mm3 (1.2-5.4) 09/20/21 00:55 [place] # (Auto) 0.3 K/mm3 (0.0-0.8) 09/20/21 00:55 Eos # (Auto) 0.0 K/mm3 (0.0-0.4) 09/20/21 00:55 Baso # (Auto) 0.0 K/mm3 (0.0-0.1) 09/20/21 00:55 Seg Neutrophils % 64.8 % (40.0-70.0) 09/20/21 00:55 Seg Neutrophils # 4.4 K/mm3 (1.8-7.7) 09/20/21 00:55 PT 14.4 Sec. (12.2-14.9) 09/20/21 00:55 INR 1.01 (0.87-1.13) 09/20/21 00:55 APTT 31.9 Sec. (24.2-36.6) 09/20/21 00:55 Sodium 138 mmol/L (137-145) 09/21/21 04:25 Potassium 3.6 mmol/L (3.6-5.0) 09/21/21 04:25 Chloride 100.7 mmol/L (98-107) 09/21/21 04:25 Carbon Dioxide 26 mmol/L (22-30) 09/21/21 04:25 Anion Gap 15 mmol/L 09/21/21 04:25 BUN 15 mg/dL (7-17) 09/21/21 04:25 Creatinine 0.5 mg/dL (0.6-1.2) L 09/21/21 04:25 Estimated GFR > 60 ml/min 09/21/21 04:25 BUN/Creatinine Ratio 30 % 09/21/21 04:25 Glucose 121 mg/dL (65-100) H 09/21/21 04:25 Calcium 9.0 mg/dL (8.4-10.2) 09/21/21 04:25 Total Bilirubin 0.60 mg/dL (0.1-1.2) 09/20/21 00:55 AST 19 units/L (5-40) 09/20/21 00:55 ALT 18 units/L (7-56) 09/20/21 00:55 Alkaline Phosphatase 48 units/L (35-129) 09/20/21 00:55 Troponin T < 0.010 ng/mL (0.00-0.029) 09/20/21 00:55 NT-Pro-B Natriuret Pep 28086 pg/mL (0-900) H 09/20/21 00:55 Total Protein 6.2 g/dL (6.3-8.2) L 09/20/21 00:55 Albumin 4.1 g/dL (3.9-5) 09/20/21 00:55 Albumin/Globulin Ratio 2.0 % 09/20/21 00:55 Urine Color Yellow (Yellow) 09/21/21 05:30 Urine Turbidity Clear (Clear) 09/21/21 05:30 Urine pH 6.0 (5.0-7.0) 09/21/21 05:30 Ur Specific [place] 1.020 (1.003-1.030) 09/21/21 05:30 Urine Protein <15 mg/dl mg/dL (Negative) 09/21/21 05:30 Urine Glucose (UA) Negative mg/dL (Negative) 09/21/21 05:30 Urine Ketones Negative mg/dL (Negative) 09/21/21 05:30 Urine Blood Negative (Negative) 09/21/21 05:30 Urine Nitrite Negative (Negative) 09/21/21 05:30 Ur Reducing Substances Not Reportable 09/21/21 05:30 Urine Bilirubin Negative (Negative) 09/21/21 05:30 Urine Ictotest Not Reportable 09/21/21 05:30 Urine Urobilinogen 2.0 mg/dL (<2.0) 09/21/21 05:30 Ur Leukocyte Esterase Negative (Negative) 09/21/21 05:30 Urine WBC (Auto) < 1.0 /HPF (0.0-6.0) 09/21/21 05:30 Urine RBC (Auto) < 1.0 /HPF (0.0-6.0) 09/21/21 05:30 U Epithel Cells (Auto) < 1.0 /HPF (0-13.0) 09/21/21 05:30 Urine Bacteria (Auto) 1+ /HPF (Negative) 09/21/21 05:30 Fernandez/IV: Voiding Method External Female Catheter Active Medications - Current Medications Current Medications: Generic Name Dose Route Start Last Admin Trade Name Freq PRN Reason Stop Dose Admin Acetaminophen 650 mg 09/20/21 11:41 Acetaminophen 325 Mg Tab PO Q4H PRN Pain MILD(1-3)/Fever >100.5/OSBORN Aspirin 81 mg 09/21/21 10:00 09/21/21 09:51 Aspirin 81 Mg Tab Chew PO 81 mg DAILY JEANNINE Administration Carvedilol 12.5 mg 09/20/21 22:00 09/20/21 21:50 Carvedilol 12.5 Mg Tab PO 12.5 mg BID JEANNINE Administration Docusate Sodium 100 mg 09/20/21 22:00 09/21/21 09:51 Docusate Sodium 100 Mg Cap PO 100 mg BID JEANNINE Administration Famotidine 20 mg 09/20/21 12:00 09/21/21 09:51 Famotidine 20 Mg Tab PO 20 mg DAILY JEANNINE Administration Furosemide 40 mg 09/20/21 22:00 09/21/21 09:51 Furosemide 40 Mg/4 Ml Inj IV 40 mg BID JEANNINE Administration Levothyroxine Sodium 100 mcg 09/20/21 12:00 09/21/21 09:51 Levothyroxine 100 Mcg Tab PO 100 mcg DAILY JEANNINE Administration Losartan Potassium 25 mg 09/21/21 10:00 Losartan 25 Mg Tab PO QDAY JEANNINE Ondansetron HCl 4 mg 09/20/21 11:41 09/20/21 22:05 Ondansetron 4 Mg/2 Ml Inj IV 4 mg Q8H PRN Administration Nausea And Vomiting Sodium Chloride 10 ml 09/20/21 11:41 Sodium Chloride 0.9% 10 Ml Flush Syringe IV PRN PRN LINE FLUSH Tramadol HCl 50 mg 09/20/21 11:48 09/21/21 03:35 Tramadol 50 Mg Tab PO 50 mg Q6HR PRN Administration Pain, Moderate (4-6)
[2021-09-21] MEDS: ONDANSETRON 4 MG/2 ML INJ IV PRN (12:27)
[2021-09-22] MEDS: traMADol 50 MG TAB PO PRN (03:55)
[2021-09-22 09:28] VITALS: BP 123/87
--- NOTE | 2021-09-22 09:59 | Electrocardiograph Report ---
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
--- NOTE | 2021-09-22 11:22 | Discharge Summary ---
Providers - Providers Date of Admission: 09/21/21 10:21 Date of discharge: 09/22/21 Attending physician: MIKI PENG MD Primary care physician: MOOK SIMPSON Hospitalization Reason for admission: Acute hypoxic respiratory failure, acute on chronic systolic heart failure Condition: Stable Pertinent studies: Reviewed. Procedures: None. Hospital course: The patient is an 86-year-old female with past medical history significant for systolic CHF with ejection fraction of 35%, status post AICD placement presented to the emergency department for the complaints of shortness of breath for the last 2 days, shortness of breath is getting worse and with exertion. Patient was feeling bad for the last few days. Patient has dry cough which was chronic nothing was changed. Patient had mild bilateral ankle edema. Patient denied any chest pain. Patient denied any fever, chills or contact with COVID-patient. Patient was seen by her organic chemistry professor Dr. Longo recently and he changed her Lasix from 40 mg to 20 mg because during evaluation patient was doing well and after that patient started to have shortness of breath. Patient was admitted for management of acute hypoxic respiratory failure in the setting of acute on chronic systolic heart failure. Patient was initiated with IV diuresis and subsequently weaned back to room air. Patient will be discharging home with Lasix 40 mg daily. Patient expresses understanding. Patient will follow-up with Dr. Longo upon discharge. Patient is medically clear for discharge. Disposition: 01 HOME / SELF CARE / HOMELESS Final Discharge Diagnosis (Prints w/discharge instructions): Acute hypoxic respiratory failure, acute on chronic systolic heart failure Time spent for discharge: 45 min Core Measure Documentation - Palliative Care Palliative Care/ Comfort Measures: Not Applicable - Core Measures Any of the following diagnoses?: heart failure - Heart Failure Discharge Requirements HERI/ARB for LVSD if EF <40%: Yes Beta zuri at discharge: Yes Exam - Constitutional Vitals: Temp Pulse Resp BP Pulse Ox 97.5 F L 68 18 123/87 94 09/22/21 09:24 09/22/21 09:24 09/22/21 09:24 09/22/21 09:24 09/22/21 09:24 General appearance: Present: no acute distress, well-nourished - EENT Eyes: Present: PERRL, EOM intact ENT: hearing intact, clear oral mucosa, dentition normal - Neck Neck: Present: supple, normal ROM - Respiratory Respiratory effort: normal Respiratory: bilateral: CTA - Cardiovascular Rhythm: regular Heart Sounds: Present: S1 & S2 - Extremities Extremities: no ischemia, pulses intact, pulses symmetrical, No edema, normal temperature, normal color Peripheral Pulses: within normal limits - Abdominal General gastrointestinal: Present: soft, non-tender, non-distended, normal bowel sounds Female genitourinary: Present: deferred - Rectal Rectal Exam: deferred - Integumentary Integumentary: Present: clear, warm, dry - Musculoskeletal Musculoskeletal: strength equal bilaterally - Psychiatric Psychiatric: appropriate mood/affect, intact judgment & insight, memory intact, cooperative - Neurologic Neurologic: CNII-XII intact, moves all extremities - Allied Health Allied health notes reviewed: nursing Plan Activity: advance as tolerated Diet: low fat Special Instructions: restrict fluid intake to (2 L/day) Additional Instructions: The patient is an 86-year-old female with past medical history significant for systolic CHF with ejection fraction of 35%, status post AICD placement presented to the emergency department for the complaints of shortness of breath for the last 2 days, shortness of breath is getting worse and with exertion. Patient was feeling bad for the last few days. Patient has dry cough which was chronic nothing was changed. Patient had mild bilateral ankle edema. Patient denied any chest pain. Patient denied any fever, chills or contact with COVID-patient. Patient was seen by her organic chemistry professor Dr. Longo recently and he changed her Lasix from 40 mg to 20 mg because during evaluation patient was doing well and after that patient started to have shortness of breath. Patient was admitted for management of acute hypoxic respiratory failure in the setting of acute on chronic systolic heart failure. Patient was initiated with IV diuresis and subsequently weaned back to room air. Patient will be discharging home with Lasix 40 mg daily. Patient expresses understanding. Patient will follow-up with Dr. Longo upon discharge. Patient is medically clear for discharge. Care Plan Goals: Patient is medically clear for discharge. Assessment: The patient is an 86-year-old female with past medical history significant for systolic CHF with ejection fraction of 35%, status post AICD placement presented to the emergency department for the complaints of shortness of breath for the last 2 days, shortness of breath is getting worse and with exertion. Patient was feeling bad for the last few days. Patient has dry cough which was chronic nothing was changed. Patient had mild bilateral ankle edema. Patient denied any chest pain. Patient denied any fever, chills or contact with COVID-patient. Patient was seen by her organic chemistry professor Dr. Longo recently and he changed her Lasix from 40 mg to 20 mg because during evaluation patient was doing well and after that patient started to have shortness of breath. Patient was admitted for management of acute hypoxic respiratory failure in the setting of acute on chronic systolic heart failure. Patient was initiated with IV diuresis and subsequently weaned back to room air. Patient will be discharging home with Lasix 40 mg daily. Patient expresses understanding. Patient will follow-up with Dr. Longo upon discharge. Patient is medically clear for discharge. Follow up with: MOOK SIMPSON MD [Primary Care Provider] - 7 Days Prescriptions: Furosemide [Lasix TAB] 40 mg PO DAILY #30 tablet
[2021-09-22] MEDS: ASPIRIN 81 MG TAB CHEW PO SCH (12:15)
[2021-09-22] MEDS: LOSARTAN 25 MG TAB PO SCH (12:15)
[2021-09-22] MEDS: FAMOTIDINE 20 MG TAB PO SCH (12:16)
[2021-09-22] MEDS: LEVOTHYROXINE 100 MCG TAB PO SCH (12:16)
[2021-09-22] MEDS: carvediloL 12.5 MG TAB PO SCH (12:16)
[2021-09-22] MEDS: DOCUSATE SODIUM 100 MG CAP PO SCH (12:17)
[2021-09-22] MEDS ORDERED: FUROSEMIDE 40 MG TAB PO SCH (18:00)
== END 2021-09-22 16:00 | disposition home health service (06) | DRG 189 ==
LOC: ED 21:59 → 4A 09-20 18:15 → OBSVTOIN 09-21 10:21
PROVIDERS: ADMIT Internal Medicine; ATTEND Student in an Organized Health Care Education/Training Program
DX: J96.01 Acute respiratory failure with hypoxia (principal); I50.23 Acute on chronic systolic (congestive) heart failure; I11.0 Hypertensive heart disease with heart failure; E78.5 Hyperlipidemia, unspecified; I25.2 Old myocardial infarction; E78.00 Pure hypercholesterolemia, unspecified; Z90.710 Acquired absence of both cervix and uterus; Z96.653 Presence of artificial knee joint, bilateral; Z95.810 Presence of automatic (implantable) cardiac defibrillator; E03.9 Hypothyroidism, unspecified; Z98.42 Cataract extraction status, left eye; Z98.41 Cataract extraction status, right eye; Z82.49 Family history of ischemic heart disease and other diseases of the circulatory system; Z79.899 Other long term (current) drug therapy; Z79.82 Long term (current) use of aspirin
CPT/HCPCS: 36415; 71045; 80048; 80053; 81001; 83880; 84484; 85025; 85610; 85730; 93005; 94644; 94760; G0378; J1940; J2405; J2930